=== PATIENT | male | born 1960 | race African-American/Black ===

== ENCOUNTER 2018-03-29 09:38 | Emergency (ER) | payer BC ==
[2018-03-29 09:45] VITALS: TEMP 98.3
[2018-03-29] MEDS ORDERED: PROPARACAINE 0.5% OPHTH DROPS 15 ML BTL BOTH EYES STA (09:55)
--- NOTE | 2018-03-29 10:48 | ED ---
Eye Problem HPI - General Chief complaint: Eye Problems Stated complaint: Eye pain/injury Time Seen by Provider: 03/29/18 09:55 Source: patient, RN notes reviewed, old records reviewed Mode of arrival: ambulatory Limitations: no limitations - History of Present Illness Initial comments: This patient's a 58-year-old male presents emergency Department chief complaint of left eye pain. Patient started 2 days ago. He reports that he does not know if there is anything within the eye. He states that he's had Patient is a 5 the past. No history of glaucoma. He reports his vision is blurred to drainage. Woke up with some mild irritation and purulent fluid from the eye. He states that he is wearing glasses when he is driving. Denies any other symptoms at this time. - Related Data Home Medications Medication Instructions Recorded Confirmed Fluticasone Nasal [place] [Flonase 2 spr EA NOSTRIL DAILY 08/05/16 03/29/18 Nasal [place]] Varenicline [Chantix] 1 mg PO BID 08/05/16 03/29/18 Previous Rx's Medication Instructions Recorded Aspirin EC [Ecotrin] 325 mg PO BID #60 tablet. 08/07/16 Hydrocodone/Acetaminophen [[place] 1 - 2 each PO Q6HR PRN #90 tab 08/07/16 5-325] Sennosides-Docusate Sodium 2 tab PO DAILY #60 tablet 08/07/16 [Senokot-S] Ciprofloxacin Ophth Soln [Ciloxan 2 drops LEFT EYE Q4HR #1 bottle 03/29/18 0.3% Ophth Soln] Allergies Allergy/AdvReac Type Severity Reaction Status Date / Time Penicillins Allergy Unknown Verified 03/29/18 09:45 Childhood Review of Systems ROS Statement: Those systems with pertinent positive or pertinent negative responses have been documented in the HPI. ROS Other: All systems not noted in ROS Statement are negative. Past Medical History Past Medical History: GERD/Reflux Additional Past Medical History / Comment(s): RECENT SINUS INFECTION-WAS ON ANTIBIOTICS AND MEDROL PACK-REOLVED NOW History of Any Multi-Drug Resistant Organisms: None Reported Past Surgical History: No Surgical Hx Reported, Joint Replacement Additional Past Surgical History / Comment(s): 08/06/16 total L hip arthroplasty. Other surgical hx: ORAL SURGERY, COLONOSCOPY Past Anesthesia/Blood Transfusion Reactions: No Reported Reaction Additional Past Anesthesia/Blood Transfusion Reaction / Comment(s): states has never had anesthesia Past Psychological History: No Psychological Hx Reported Smoking Status: Current every day smoker Past Alcohol Use History: Daily Past Drug Use History: None Reported - Past Family History Brother(s) Family Medical History: Deep Vein Thrombosis (DVT) General Exam - General Exam Comments Initial Comments: 58-year-old male. Alert and oriented. No significant distress. General: Well appearing, well nourished, in no distress. Oriented x 3, normal mood and affect . Ambulating without difficulty. Skin: Good turgor, no rash, unusual bruising or prominent lesions Hair: Normal texture and distribution. HEENT: Head: Normocephalic, atraumatic, no visible or palpable masses, depressions, or scaring. Eyes: Left eye conjunctival injection. Pain with consensual light within the right eye Patient reports pain in the left eye. Patient has no evidence of foreign body or abrasion. Diffuse uptake on fluorescein eye exam. Nose: No external lesions, mucosa non-inflamed, septum and turbinates normal Mouth: Mucous membranes moist, no mucosal lesions. Teeth/Gums: No obvious caries or periodontal disease. No gingival inflammation or significant resorption. Pharynx: Mucosa non-inflamed, no tonsillar hypertrophy or exudate Neck: Supple, without lesions, bruits, or adenopathy, thyroid non-enlarged and non-tender Heart: No cardiomegaly or thrills; regular rate and rhythm, no murmur or gallop Lungs: Clear to auscultation and percussion Limitations: no limitations Course Vital Signs 03/29/18 09:42 Temperature 98.3 F Pulse Rate 83 Respiratory 16 Rate Blood Pressure 146/84 O2 Sat by Pulse 97 Oximetry Medical Decision Making - Medical Decision Making Patient is a 58-year-old male chief complaint of left eye pain. Patient has significant conjunctival injection. I believe Patient has iritis is Patient does have pain in the left eye, the bat I, and lashed out into the right eye. Patient pressures were 16 on the left 19 on the right eye. Visual acuity intact. On fluorescein eye exam and denied of any corneal abrasion or foreign body noted. I did lift the lid and thoroughly explored the eye. Patient at this and was started on antibiotic drops for the eye. I discussed following up with ophthalmology. Patient agrees to treatment plan will comply. Return parameters were discussed. Discussed case with Dr. Leslie. Disposition Clinical Impression: Conjunctivitis, Iritis of left eye Disposition: HOME SELF-CARE Condition: Good Instructions: Iritis (ED), Conjunctivitis (ED) Additional Instructions: Patient advised to follow-up with ophthalmology tomorrow. With the eyedrops eye every 4 hours. Return to the emergency department if any alarming signs or symptoms occur. Prescriptions: Ciprofloxacin Ophth Soln [Ciloxan 0.3% Ophth Soln] 2 drops LEFT EYE Q4HR #1 bottle Is patient prescribed a controlled substance at d/c from ED?: No When asked, does pt state using other controlled substances?: No If prescribed controlled substance>3 days was MAPS reviewed?: No If opioid is for acute pain is fill amount 7 days or less?: No If Rx opioid, was Start Talking consent form obtained?: No Referrals: John Boone MD [Primary Care Provider] - 1-2 days Joanna Robledo MD [STAFF PHYSICIAN] - 1-2 days Time of Disposition: 10:46
[2018-03-29 10:56] VITALS: BP 144/93; PULSE 69; RESP 18
== END 2018-03-29 10:56 | disposition home or self-care (01) ==
LOC: EC 09:38
DX: H10.9 Unspecified conjunctivitis (principal); H20.9 Unspecified iridocyclitis; F17.200 Nicotine dependence, unspecified, uncomplicated; Z79.51 Long term (current) use of inhaled steroids; Z79.899 Other long term (current) drug therapy; Z88.0 Allergy status to penicillin
CPT/HCPCS: 99283

== ENCOUNTER → 2018-08-11 | Outpatient (CLI) | payer BC ==
[2018-08-11 17:12] LABS: HCT 44.9 % (39.0-53.0); HGB 14.9 gm/dL (13.0-17.5); MCH 30.3 pg (25.0-35.0); MCHC 33.1 g/dL (31.0-37.0); MCV 91.7 fL (80.0-100.0); Mean Platelet Volume 6.8; Platelet Count 237 k/uL (150-450); RDW 12.4 % (11.5-15.5); WBC 7.8 k/uL (3.8-10.6)
[2018-08-11 17:16] LABS: Albumin 4.2 g/dL (3.5-5.0); Calcium 9.8 mg/dL (8.4-10.2); INR 1.1 (<1.2); Partial Thromboplastin Time 24.6 sec (22.0-30.0); Potassium 4.5 mmol/L (3.5-5.1); Prothrombin Time 10.4 sec (9.0-12.0); Total Bilirubin 0.6 mg/dL (0.2-1.3); Total Protein 7.6 g/dL (6.3-8.2)
[2018-08-11 17:21] LABS: Appearance,Urine Clear (Clear); Bilirubin,Urine Negative (Negative); Blood,Urine Negative (Negative); Color,Urine Yellow; Glucose,Urine (UA) Negative (Negative); Ketones,Urine Negative (Negative); Leukocyte Esterase,Urine Small (Negative); Nitrite,Urine Negative (Negative); Protein,Urine Negative (Negative); RBC,Urine 1 /hpf (0-5); Specific Gravity,Urine 1.016 (1.001-1.035); Squamous Epithelial Cell,Urine <1 /hpf (0-4); Urobilinogen,Urine <2.0 mg/dL (<2.0); WBC,Urine 2 /hpf (0-5)
== END | disposition home or self-care (01) ==
LOC: LABPAT 16:07
PROVIDERS: ATTEND Orthopaedic Surgery
DX: Z01.818 Encounter for other preprocedural examination (principal); Z01.812 Encounter for preprocedural laboratory examination
CPT/HCPCS: 36415; 80053; 81001; 85027; 85610; 85730; 87070; 93005

== ENCOUNTER → 2020-03-13 | Outpatient (CLI) | payer BC ==
--- NOTE | 2020-03-13 15:44 | CT ---
EXAMINATION TYPE: CT abdomen pelvis wo con DATE OF EXAM: 03/13/2020 COMPARISON: None HISTORY: Left sided flank pain with hematuria. CT DLP: 647.1 mGycm Automated exposure control for dose reduction was used. TECHNIQUE: Helical acquisition of images from the lung bases through the pelvis. FINDINGS: Lack of intravenous contrast could compromise sensitivity of the exam. LUNG BASES: No significant abnormality is appreciated. AORTA: No significant abnormality is appreciated. LIVER/GB: No significant abnormality is appreciated. PANCREAS: No significant abnormality is seen. SPLEEN: No significant abnormality is seen. ADRENALS: No significant abnormality is seen. KIDNEYS: No significant abnormality is seen. REPRODUCTIVE ORGANS: No significant abnormality is seen. URINARY BLADDER: No significant abnormality is seen. BOWEL: Mild diverticular changes associated with the colon, the appendix is normal, there is no obst ruction. FREE AIR: No Free Air is visible. ASCITES: None visible. PELVIC ADENOPATHY: None visualized. RETROPERITONEAL ADENOPATHY: No Retroperitoneal Adenopathy visible. OSSEOUS STRUCTURES: Streak artifact due to patient's bilateral hip prostheses limits detail. Degenera tive disc changes are noted at the lumbosacral junction, there is associated facet arthropathy IMPRESSION: LACK OF CONTRAST MAY LIMIT THE EXAM. NO EVIDENT RENAL STONE OR HYDRONEPHROSIS. LIMITATIONS DESCRIB ED.
== END | disposition home or self-care (01) ==
LOC: RADCTMAIN 14:50
PROVIDERS: ATTEND Urology
DX: R10.9 Unspecified abdominal pain (principal); R31.1 Benign essential microscopic hematuria; Z88.0 Allergy status to penicillin
CPT/HCPCS: 74176

== ENCOUNTER 2022-04-23 10:26 | Emergency (ER) | payer BC ==
[2022-04-23 10:46] VITALS: BP 147/88; PULSE 69; RESP 18; TEMP 98.3
--- NOTE | 2022-04-23 12:07 | ED ---
General Adult HPI - General Chief complaint: Neck Pain/Injury Stated complaint: Neck Pain Time Seen by Provider: 04/23/22 11:43 Source: patient Mode of arrival: ambulatory Limitations: no limitations - History of Present Illness Initial comments: Patient is a 62-year-old -[place] male presents sense to the emergency room with complaints of ongoing neck pain and stiffness with limited active range of motion. He reports this symptom has gotten progressively worse over the last 4 days despite the use of cyclobenzaprine prescribed by his primary care provider and a recent steroid injection by his orthopedist for chronic hip pain. He denies any known trauma. He does report that he works long hours and has a long commute to and from work which she believes is making his symptoms worse. In addition to his neck stiffness he is complaining of pain with swallowing due to a sore throat along with sinus congestion and sinus-like headache; he reports the symptoms have been ongoing for approximately 6 days without any improvement. He denies taking any medications to help with the symptoms. He denies any fevers, chills, nausea, vomiting, abdominal pain, focal neurological deficits, headaches not associated with sinus pressure, known exposure to cold fluid influenza or strep throat. He has a past medical history significant for hypertension, GERD and arthritis. He denies any other complaints or concerns at this time. - Related Data Home Medications Medication Instructions Recorded Confirmed Fluticasone Nasal [place] [Flonase 2 spr EA NOSTRIL DAILY 08/05/16 08/18/18 Nasal [place]] HYDROcodone/APAP 7.5-325MG [[place] 1 tab PO TID PRN 08/11/18 08/18/18 7.5-325] Loratadine-Pseudoeph 5-120 mg 1 tab PO Q12HR PRN 08/11/18 08/18/18 [Claritin-D 12 HR] Preworkout Supplement 1 dose PO DAILY 08/11/18 08/18/18 Varenicline [Chantix Starter Pack] 0.5 mg PO BID 08/11/18 08/18/18 [place] Workout Supplement 1 dose PO DAILY 08/11/18 08/18/18 Previous Rx's Medication Instructions Recorded Aspirin 325 mg PO BID #60 tab 08/19/18 HYDROcodone/APAP 7.5-325MG [[place] 1 - 2 tab PO Q4-6H PRN #84 tab 08/19/18 7.5-325] Ketorolac [Toradol] 10 mg PO Q6HR #12 tab 08/19/18 Sennosides [Senokot] 1 tab PO BID #60 tablet 08/19/18 Doxycycline [Vibramycin] 100 mg PO BID 7 Days #14 capsule 04/23/22 Allergies Allergy/AdvReac Type Severity Reaction Status Date / Time Penicillins Allergy Unknown Verified 04/23/22 10:46 Childhood Review of Systems ROS Statement: Those systems with pertinent positive or pertinent negative responses have been documented in the HPI. ROS Other: All systems not noted in ROS Statement are negative. Past Medical History Past Medical History: GERD/Reflux, Hypertension, Osteoarthritis (OA) Additional Past Medical History / Comment(s): Hx SINUS,no longer on b/p meds History of Any Multi-Drug Resistant Organisms: None Reported Past Surgical History: No Surgical Hx Reported, Unable to Obtain, Joint Replacement Additional Past Surgical History / Comment(s): 08/06/16 total L hip arthr oplasty. Other surgical hx: ORAL SURGERY, COLONOSCOPY Past Anesthesia/Blood Transfusion Reactions: No Reported Reaction Additional Past Anesthesia/Blood Transfusion Reaction / Comment(s): no hx blood transfusion Past Psychological History: No Psychological Hx Reported Smoking Status: Current every day smoker Past Alcohol Use History: Daily Past Drug Use History: None Reported - Past Family History Brother(s) Family Medical History: Deep Vein Thrombosis (DVT) General Exam Limitations: no limitations General appearance: alert, in no apparent distress Head exam: Present: atraumatic, normocephalic, normal inspection Eye exam: Present: normal appearance, PERRL, EOMI. Absent: scleral icterus, conjunctival injection, periorbital swelling Expanded Ear exam: Present: normal external inspection, other (Unusual to visualize TMs due to cerumen) Mouth exam: Present: normal external inspection, tongue normal Teeth exam: Present: normal inspection Throat exam: tonsillar erythema. negative: tonsillar exudate Neck exam: Present: normal inspection, tenderness, full ROM (Limited due to pain), lymphadenopathy. Absent: thyromegaly Respiratory exam: Present: normal lung sounds bilaterally. Absent: respiratory distress, wheezes, rales, rhonchi, stridor Cardiovascular Exam: Present: regular rate, normal rhythm, normal heart sounds. Absent: systolic murmur, diastolic murmur, rubs, gallop, clicks GI/Abdominal exam: Present: soft, normal bowel sounds. Absent: distended, tenderness, guarding, rebound, rigid Extremities exam: Present: normal inspection, full ROM, normal capillary refill. Absent: tenderness, pedal edema, joint swelling, calf tenderness Back exam: Present: normal inspection Neurological exam: Present: alert, oriented X3, CN II-XII intact Psychiatric exam: Present: normal affect, normal mood Skin exam: Present: warm, dry, intact, normal color. Absent: rash Course Vital Signs 04/23/22 10:42 Temperature 98.3 F Pulse Rate 69 Respiratory 18 Rate Blood Pressure 147/88 O2 Sat by Pulse 100 Oximetry Medical Decision Making - Medical Decision Making Will check x-ray to evaluate for any cervical disc anomalies or fractures along with evaluation of soft tissue swelling. No indication for computed tomography scan given lack of trauma and history of neck pain with range of motion restriction and stiffness. High probability for bacterial sinusitis given duration of symptoms worsening after 5 days however will check for viral aspect with influenza and covid swab in addition to strep A due to pain with swallowing. No indication for further laboratory studies at this time. Will give IM ketorlac lack and evaluate increase in active range of motion and neck pain afterwards. Some improvement in pain and active range of motion after dose of ketorolac will repeat IM ketorolac dose. Complete x-ray of cervical spine spine with flexion and extension shows no acute fracture or dislocation. Soft tissues are within normal limits, mild degenerative disc disease changes of cervical spine noted. Given response to ketorolac with range of motion and neck pain will discharge on Tylenol 3 starter pack for pain. Encouraged continued range of motion for torticollis. Viral swabs negative for influenza and covid as well as strep A rapid; will treat for bacterial sinusitis with doxycycline due to penicillin ALLERGY. Advised to drink plenty of fluids. If fevers or worsening of symptoms will need return to emergency room or urgent care as appropriate. Case discussed with Dr. Leslie. - Lab Data Lab Results 04/23/22 04/23/22 04/23/22 Range/Units 12:11 12:11 12:11 Coronavirus (PCR) Not Detected (Not Detectd) Influenza Type A RNA Not Detected (Not Detectd) Influenza Type B (PCR) Not Detected (Not Detectd) Group A Strep (PCR) NOT DETECTED (Not Detectd) Disposition Clinical Impression: Acute torticollis, Sinusitis, acute Disposition: HOME SELF-CARE Condition: Stable Instructions (If sedation given, give patient instructions): Cervical Strain (ED), Sinusitis (ED) Additional Instructions: Regarding sinus infection: Please complete antibiotic therapy as prescribed. Drink plenty of water to help keep the nasal secretions thin. In regards to neck pain please utilize Tylenol 3 as needed for pain from starter pack given. May alternate with [id number] ibuprofen as needed as well. Apply heat or ice alternately for up to 20 minutes for pain relief. Range of motion as tolerated encouraged. Avoid keeping neck and persistent continuous position for long periods of time. May utilize muscle relaxer from primary care provider as needed. Please follow-up with your primary care provider. Please return to the Emergency Department if symptoms worsen or any other concerns. Prescriptions: Doxycycline [Vibramycin] 100 mg PO BID 7 Days #14 capsule Is patient prescribed a controlled substance at d/c from ED?: No Referrals: John Boone MD [Primary Care Provider] - 1-2 days Time of Disposition: 13:49
[2022-04-23] MEDS ORDERED: KETOROLAC 15 MG/ML 1 ML VIAL IM STA ×2 (12:15→13:31)
--- NOTE | 2022-04-23 12:47 | XR ---
EXAMINATION TYPE: XR cervical spine w flex/ext DATE OF EXAM: 04/23/2022 12:31 PM INDICATION: Patient age:Male; 62 years old; Reason for study: neck pain COMPARISON: None TECHNIQUE: The cervical spine was imaged in 4 projections. Frontal, lateral, odontoid and bilateral o blique. FINDINGS: Straightening of the cervical spine. No evidence of acute fracture or spondylolisthesis. There are os teophytes noted throughout the cervical spine on the anterior and lateral aspects of the vertebral elier dies. The intervertebral disk spaces are preserved. Pedicles are intact. Moderate narrowing of the C3-C4 neural canals bilaterally. Soft tissues are within normal limits. Calcification along the nucha l ligament. The odontoid appears intact. IMPRESSION: 1. No fracture or dislocation. 2. Mild degenerative disc disease changes of the cervical spine.
[2022-04-23] MEDS ORDERED: ACET/COD 300 MG/30 MG STARTER PACK 6 TAB BTL PO STA (13:32)
== END 2022-04-23 13:58 | disposition home or self-care (01) ==
LOC: EC 10:26
DX: M43.6 Torticollis (principal); J32.9 Chronic sinusitis, unspecified; I10 Essential (primary) hypertension; F17.200 Nicotine dependence, unspecified, uncomplicated; Z20.822 Contact with and (suspected) exposure to COVID-19; Z88.0 Allergy status to penicillin
CPT/HCPCS: 87651; 87502; 87635; 72052; 99284; 96372; J1885